=== PATIENT | female | born 1955 | race Caucasian/White ===

== ENCOUNTER → 2019-11-20 08:34 | Outpatient (CLI) | payer OTHER, SELFPAY ==
--- NOTE | ~2019-11-20 | MM_ITS ---
EXAMINATION: MM diagnostic esha LT w annalisa HISTORY: Left breast pain TECHNIQUE: ML, MLO and cc 3-D tomosynthesis images of the left breast were performed and synthetic 2- D images were generated. CAD analysis was submitted and interpreted. COMPARISON: None BREAST PARENCHYMAL COMPOSITION: The breasts are almost entirely fatty. FINDINGS: Occasional punctate benign microcalcifications. No suspicious mass or architectural distort ion, malignant calcification, skin thickening or retraction is detected. IMPRESSION: 1. No mammographic evidence of malignancy 2. Routine mammographic screening is recommended. BI-RADS Category 2: Benign finding(s). Reviewed, dictated and finalized at location A. SHOVELER
== END ==
PROVIDERS: PCP Internal Medicine; Visit Provider Nurse Practitioner
DX: N64.4 Mastodynia (principal)
CPT/HCPCS: 77061; 77065; G0279

== ENCOUNTER → 2021-02-20 13:23 | Outpatient (CLI) | payer OTHER, SELFPAY ==
--- NOTE | ~2021-02-20 | DEXA_ITS ---
Bone Density Report Name: Delisa Stein Age: 65 Sex: Female Ethnicity: White Date of : 1955 Indication: monitoring treatment; anorexia or bulimia; asthma or emphysema; hysterectomy; Referring Provider: TOBIAS VALLADARES Study: Bone densitometry was performed. Exam Date: February 20, 2021 Accession number: [id number] Bone Density: Region BMD T-score Z-score Classification AP Spine (L1-L4) 1.151 0.9 2.7 Normal Femoral Neck (Left) 0.773 -0.7 0.8 Normal Total Hip (Left) 0.952 0.1 1.3 Normal Femoral Neck (Right) 0.734 -1.0 0.4 Normal Total Hip (Right) 0.902 -0.3 0.9 Normal Total Hip Mean 0.927 -0.1 1.1 Normal World Health Organization criteria for BMD impression classify patients as: Normal (T-score at or above -1.0), Osteopenia (T-score between -1.0 and -2.5), or Osteoporosis (T-score at or below -2.5). 10-year Fracture Risk: FRAX not reported because: All T-scores for Spine Total, Hip Total, Femoral Neck at or above -1.0 Treated for osteoporosis Previous Exams: Region Exam Age BMD T-score BMD Change BMD Change Date g/cm2 vs Baseline vs Previous AP Spine(L1-L4) 02/20/2021 65 1.151 0.9 0.064* 0.015 11/26/2016 60 1.136 0.8 0.049* 0.049* 01/22/2013 57 1.087 0.4 Total Hip(Left) 02/20/2021 65 0.952 0.1 0.008 0.016 11/26/2016 60 0.936 0.0 -0.009 -0.009 01/22/2013 57 0.945 0.0 Total Hip(Right) 02/20/2021 65 0.902 -0.3 -0.047* -0.033* 11/26/2016 60 0.935 -0.1 -0.015 -0.015 01/22/2013 57 0.949 0.1 *Denotes significance at 95% confidence level, LSC for AP Spine = 0.022 g/cm2, LSC for Total Hip = 0.027 g/cm2 Clinical Information Provided by Patient: Is being treated for osteoporosis Has used the following medications: HRT (i.e. estrogen/hormone therapy), Vitamin D, Calcium Has the following medical conditions: Anorexia or Bulimia, Asthma or Emphysema, Hysterectomy Patient maximum height was 62 Menopause Age: 41 Does not regularly consume dairy products Drinks caffeinated beverages Onset of menses at age 14 Number of children 1 Impression: The patient has normal bone mass. The BMD for the Total Hip(Right) decreased, changing by -0.033 since the last DXA exam. Discussion: SIGNIFICANT BONE LOSS OBSERVED. Adherence to therapy (including calcium and vitamin D intake) should be assessed. If
== END ==
PROVIDERS: Visit Provider Obstetrics & Gynecology Gynecology
DX: Z78.0 Asymptomatic menopausal state (principal)
CPT/HCPCS: 77080

== ENCOUNTER → 2021-10-21 16:40 | Outpatient (CLI) | payer OTHER, SELFPAY ==
--- NOTE | ~2021-10-21 | XR_ITS ---
EXAMINATION: XR chest 2V DATE: 10/21/2021 17:00 INDICATION: Chest pain, unspecified TECHNIQUE: PA and lateral views of the chest are obtained. COMPARISON: 08/15/2013 FINDINGS: The lungs are free of acute opacities. There is no pleural effusion or pneumothorax. The ca rdiomediastinal silhouette is normal. There is moderate thoracic spondylosis. IMPRESSION: 1. No acute cardiopulmonary abnormality. Reviewed, dictated and finalized at location F. R BUILDER LOADER
== END ==
PROVIDERS: PCP Internal Medicine; Visit Provider Internal Medicine
DX: R07.9 Chest pain, unspecified (principal)
CPT/HCPCS: 71046

== ENCOUNTER 2022-02-20 16:26 | Emergency (ER) | payer MEDICARE, SELFPAY ==
--- NOTE | ~2022-02-20 | XR_ITS ---
EXAM: XR foot LT min 3V HISTORY: PLANTER PAIN, NO INJURY COMPARISON: 11/14/2018. FINDINGS: Normal mineralization. No fracture or dislocation. No lytic or blastic lesion. Mild degene rative change in the first MTP and midfoot. Achilles and plantar enthesopathy. No erosion or perioste al change. Soft tissues within normal limits. IMPRESSION: No acute osseous finding in the left foot. Reviewed, dictated and finalized at location K.
[2022-02-20 16:33] VITALS: BP 132/54; PULSE 70; RESP 18; TEMP 37; O2SAT 99
--- NOTE | 2022-02-20 17:46 | ED.LOWEXIN ---
HPI - Extremity Injury (Lower) General Chief Complaint: Extremity Injury, Lower Stated Complaint: foot injury Time Seen by Provider: 02/20/22 16:37 History of Present Illness HPI Narrative: 66-year-old female presents the emergency room for evaluation of left heel pain. Patient states she experienced abrupt onset of left heel pain when walking. Patient describes the pain is sharp, and is not relieved with ambulation. Patient denies any injury or trauma. Related Data Allergies Allergy/AdvReac Type Severity Reaction Status Date / Time Sulfa (Sulfonamide Allergy Mild Rash Unverified 03/14/17 07:52 Antibiotics) codeine Allergy Unknown Verified 08/28/15 09:15 erythromycin base Allergy Unknown Verified 08/28/15 09:15 morphine Allergy Unknown Verified 08/28/15 09:15 Review of Systems Review of Systems: CONSTITUTIONAL: Denies fever, chills, or sweats. EYES: Denies visual changes, redness, or discharge. ENT: Denies rhinorrhea, congestion, sore throat, or otalgia. CARDIOVASCULAR: Denies chest pain, palpitations, or edema. RESPIRATORY: Denies cough or dyspnea. GASTROINTESTINAL: Denies abdominal pain, nausea, vomiting, or diarrhea. GENITOURINARY: Denies dysuria or hematuria. SKIN: Denies rash or itching. MUSCULOSKELETAL: Reports left heel pain NEUROLOGIC: Denies headache, numbness, dizziness, or weakness. PSYCHIATRIC: Denies anxiety or depression. [facility] Social History Social History Smoking status: Never smoker Exam Narrative: GENERAL: Well-appearing, well-nourished, and in no acute distress. HEAD: Normocephalic, atraumatic. EYES: PERRLA and EOMI. CHEST: Clear to auscultation. No respiratory distress. No wheezes rales or rhonchi HEART: Regular rate and rhythm. No murmur heard. Normal peripheral pulses. EXTREMITIES: Normal range of motion. No edema. Left foot: Tenderness to the anterior surface of the heel, that is not exacerbated with dorsiflexion of the foot. No observable soft tissue swelling or bony abnormality SKIN: Warm, dry, no rash. NEURO: No focal deficits. Alert and oriented x3. PSYCH: Normal mood and affect. Course Vital Signs Vital signs: Vital Signs Temperature 37.0 C 02/20/22 16:33 Pulse Rate 70 02/20/22 16:33 Respiratory Rate 18 02/20/22 16:33 Blood Pressure 132/54 L 02/20/22 16:33 Pulse Oximetry 99 02/20/22 16:33 Temperature 37.0 C 02/20/22 16:33 Pulse Rate 70 02/20/22 16:33 Respiratory Rate 18 02/20/22 16:33 Blood Pressure 132/54 L 02/20/22 16:33 Pulse Oximetry 99 02/20/22 16:33 MDM - Extremity Injury (Lower) Imaging Data Radiologist's impression: Impressions Foot X-Ray 02/20/22 17:10 IMPRESSION: No acute osseous finding in the left foot. Discharge Plan Discharge Clinical Impression: Tendinitis of left foot Patient Disposition: Home, Self-Care Condition: Stable Instructions: Antibiotic Form Prescriptions: New naproxen 500 mg tablet 500 mg PO BID Qty: 14 RF: 0 Follow-up/Referrals: Michael Her JR, MD [Physician] - Carlos,Fabio Lin MD [Primary Care Provider] - Time of Disposition: 17:50
== END 2022-02-20 18:06 | disposition home or self-care (01) ==
PROVIDERS: Emergency Provider Nurse Practitioner Family; PCP Internal Medicine
DX: M77.8 Other enthesopathies, not elsewhere classified (principal)
CPT/HCPCS: 73630; 99283

== ENCOUNTER 2022-08-25 06:40 | Emergency (ER) | payer MEDICARE, SELFPAY ==
--- NOTE | ~2022-08-25 | XR_ITS ---
EXAMINATION: XR foot RT min 3V DATE: 08/25/2022 07:34 INDICATION: Right foot pain and swelling. TECHNIQUE: 4 views of right foot were obtained. COMPARISON: None. FINDINGS: Bone alignment is normal. There is a nondisplaced transverse fracture of base of fifth meta tarsal. There is mild osteoarthritis of talonavicular joint. There are enthesophytes at the posterior and plantar aspects of calcaneal tuberosity. IMPRESSION: 1. Nondisplaced transverse fracture of base of fifth metatarsal. Reviewed, dictated and finalized at location A. ER TILE FLOOR LAYER
--- NOTE | ~2022-08-25 | XR_ITS ---
EXAMINATION: XR ankle RT min 3V DATE: 08/25/2022 07:34 INDICATION: Right ankle pain and swelling. TECHNIQUE: 4 views of right ankle were obtained. COMPARISON: None. FINDINGS: Bone alignment is normal. There is a transverse fracture of base of fifth metatarsal. There is mild osteoarthritis of talonavicular joint. There are enthesophytes at the posterior and plantar resonance of calcaneal tuberosity. IMPRESSION: 1. Transverse fracture of base of fifth metatarsal. Reviewed, dictated and finalized at location A. CAL TERMINOLOGIST
[2022-08-25 06:44] VITALS: BP 147/55; PULSE 58; RESP 17; TEMP 36.3; O2SAT 97
--- NOTE | 2022-08-25 07:38 | ED.LOWEXIN ---
HPI - Extremity Injury (Lower) General Chief Complaint: Extremity Injury, Lower Stated Complaint: right foot pain Time Seen by Provider: 08/25/22 07:38 Source: patient History of Present Illness HPI Narrative: 66 years old white female, twisted right foot yesterday while slipping on a rock. No other injuries. Allergic to codeine. Related Data Home Medications Medication Instructions Recorded Confirmed atenolol 25 mg tablet 25 mg PO DAILY 08/25/22 estradiol 0.045 mg-levonorgestrel 1 patch transdermal WEEKLY 08/25/22 0.015 mg/24hr weekly transderm patch (Climara Pro) Allergies Allergy/AdvReac Type Severity Reaction Status Date / Time Sulfa (Sulfonamide Allergy Mild Rash Verified 08/25/22 07:13 Antibiotics) codeine Allergy Unknown Unknown Verified 08/25/22 07:13 erythromycin base Allergy Unknown Unknown Verified 08/25/22 07:13 morphine Allergy Unknown Unknown Verified 08/25/22 07:13 Review of Systems Review of Systems: All systems reviewed & are unremarkable except as noted in HPI and below PMFSH Social History Social History Smoking status: Never smoker Exam Narrative: General appearance: Well-developed, well-nourished Skin: Normal color Head: Normocephalic, nontraumatic Eyes: Clear conjunctiva Neck: Supple, nontender Chest and respiratory: Airway patent, no respiratory distress, no accessory muscle use Heart: Regular rate/rhythm Vascular: Normal peripheral pulses, normal capillary refill. Musculoskeletal: Diffuse tenderness right foot dorsally and laterally, swelling, bruises Neurologic: Alert and oriented ?3, WEATHERSEAL TECHNICIAN is normal as tested, no gross motor deficit Course Vital Signs Vital signs: Vital Signs Temperature 36.3 C L 08/25/22 06:44 Pulse Rate 58 L 08/25/22 06:44 Respiratory Rate 17 08/25/22 06:44 Blood Pressure 147/55 H 08/25/22 06:44 Pulse Oximetry 97 08/25/22 06:44 Oxygen Delivery Room Air 08/25/22 06:44 Temperature 36.3 C L 08/25/22 06:44 Pulse Rate 58 L 08/25/22 06:44 Respiratory Rate 17 08/25/22 06:44 Blood Pressure 147/55 H 08/25/22 06:44 Pulse Oximetry 97 08/25/22 06:44 Oxygen Delivery Room Air 08/25/22 06:44 MDM - Extremity Injury (Lower) Differential Diagnosis Differential diagnosis: Likely ankle sprain and strain and ankle fracture Imaging Data Radiologist's impression: Impressions Ankle X-Ray 08/25/22 07:35 IMPRESSION: 1. Transverse fracture of base of fifth metatarsal. Foot X-Ray 08/25/22 07:36 IMPRESSION: 1. Nondisplaced transverse fracture of base of fifth metatarsal. Critical Care Time Critical Care Time Critical Care Time: No Discharge Plan Discharge Clinical Impression: Foot fracture, right Patient Disposition: Home, Self-Care Condition: Stable Instructions: Antibiotic Form, Foot Fracture in Adults (ED) Additional Instructions: Return if symptoms are worsening , call your family physician for appointment, take Tylenol as as needed for aches and pain, continue home medications. Prescriptions: No Action atenolol 25 mg Tablet 25 mg PO DAILY Climara Pro 0.045-0.015 mg/24 hr Patch Weekly 1 patch TRANSDERMAL WEEKLY naproxen 500 mg tablet 500 mg PO BID Qty: 14 0RF Follow-up/Referrals: Michael Her JR, MD [Physician] - 08/25/22 Carlos,Fabio Lin MD [Primary Care Provider] - Stand Alone Forms: Work/School Release IP
--- NOTE | 2022-08-27 08:14 | PC.NURSE ---
late entry from 08/25/22 0709 & 0800 wound injury documentation should state right foot not left
== END 2022-08-25 08:00 | disposition home or self-care (01) ==
PROVIDERS: Emergency Provider Emergency Medicine; PCP Internal Medicine
DX: S92.354A Nondisplaced fracture of fifth metatarsal bone, right foot, initial encounter for closed fracture (principal); W18.41XA Slipping, tripping and stumbling without falling due to stepping on object, initial encounter
CPT/HCPCS: 73610; 73630; 99284

== ENCOUNTER → 2022-10-21 14:26 | Outpatient (CLI) | payer OTHER, SELFPAY ==
--- NOTE | ~2022-10-21 | US_ITS ---
EXAMINATION: US soft tissue chest INDICATION: Lump between the breasts TECHNIQUE: Limited high-resolution ultrasound is performed in the area of clinical concern. COMPARISON: None available FINDINGS: No suspicious cystic or solid sonographically detected mass is identified. There is normal chest wall tissue in the area of clinical concern. IMPRESSION: 1. No specific sonographic correlate is identified for the reported palpable abnormality of concern. Reviewed, dictated and finalized at location B. K REPAIR LABORER IMPRESSION: 1. No specific sonographic correlate is identified for the reported palpable ab normality of concern.
== END ==
PROVIDERS: PCP Internal Medicine; Visit Provider Obstetrics & Gynecology Gynecology
DX: N63.0 Unspecified lump in unspecified breast (principal)
CPT/HCPCS: 76604

== ENCOUNTER → 2022-11-12 13:31 | Outpatient (CLI) | payer MEDICARE, SELFPAY ==
--- NOTE | ~2022-11-12 | US_ITS ---
US axilla RT 11/12/2022 14:07 Indication: Palpable right axillary mass. Procedure: High-resolution Limited ultrasound of the right axilla Comparison: No prior studies for comparison. Findings: There are normal-appearing right axillary lymph nodes which retain their normal fatty hilum . Largest measures 1.9 x 1.1 x 1.6 cm, likely reactive. Impression: 1: Right axillary lymph nodes, most likely reactive, largest measuring up to 1.9 cm. Reviewed, dictated and finalized at location A. N OPERATOR Impression: 1: Right axillary lymph nodes, most likely reactive, largest measuring up to 1. 9 cm.
--- NOTE | ~2022-11-12 | US_ITS ---
EXAMINATION: US soft tissue head and neck DATE: 11/12/2022 14:07 INDICATION: Right supraclavicular lump. TECHNIQUE: Multiple grayscale and Doppler ultrasound images of the right supraclavicular region were obtained. COMPARISON: None FINDINGS: There is a normal lymph node in right supraclavicular region in the patient's area of indu rn. IMPRESSION: 1. No abnormal mass or lymphadenopathy in the patient's area of concern in right supraclavicular lindsay on. Reviewed, dictated and finalized at location A. CH/LANGUAGE THERAPIST IMPRESSION: 1. No abnormal mass or lymphadenopathy in the patient's area of concern in righ t supraclavicular region.
== END ==
PROVIDERS: PCP Internal Medicine; Visit Provider Surgery
DX: R22.2 Localized swelling, mass and lump, trunk (principal); R22.31 Localized swelling, mass and lump, right upper limb
CPT/HCPCS: 76536; 76882

== ENCOUNTER → 2023-04-18 08:02 | Outpatient (CLI) | payer MEDICARE, SELFPAY ==
--- NOTE | ~2023-04-18 | MR_ITS ---
MRI of the right foot CLINICAL HISTORY: Fracture base of fifth metatarsal TECHNIQUE: Axial proton-density and proton-density fat-sat images, sagittal T1-weighted and STIR imag es, and coronal T1-weighted and proton-density fat-sat images were performed. FINDINGS: There is an oblique, intra-articular fracture at the base the fifth metatarsal, without sig nificant displacement. There is minimal marrow edema. Remaining osseous structures are intact. No oth er fracture or dislocation seen. Joint spaces are well preserved. Flexor and extensor tendons are intact. There is minimal nonspecific subcutaneous soft tissue edema a t the dorsal aspect of the foot. No abscess or fluid collection evident. No intermetatarsal bursitis or Almonte's neuroma evident. IMPRESSION: Oblique, intra-articular, essentially nondisplaced fracture at the base of the fifth metatarsal. This could reflect delayed/nonunion, as patient had a similar fracture on prior radiographs from 08/25/20 22. Correlate for interval injury since that exam. Reviewed, dictated and finalized at [facility]. IMPRESSION: Oblique, intra-articular, essentially nondisplaced fracture at the base of the fifth metatarsal. This could reflect delayed/nonunion, as patient had a similar fracture on prior radiographs from 08/25/2022. Correlate for interval injury s sheela that exam.
== END ==
PROVIDERS: PCP Internal Medicine; Visit Provider Podiatrist Foot & Ankle Surgery
DX: S92.351K Displaced fracture of fifth metatarsal bone, right foot, subsequent encounter for fracture with nonunion (principal); X58.XXXD Exposure to other specified factors, subsequent encounter
CPT/HCPCS: 73718

== ENCOUNTER → 2023-06-30 12:22 | Outpatient (CLI) | payer MEDICARE, SELFPAY ==
--- NOTE | ~2023-06-30 | DEXA_ITS ---
Bone Density Report Name: ADAM PHAN Age: 67 Sex: Female Ethnicity: White Date of : 1955 Indication: postmenopausal; screening for osteoporosis; asthma or emphysema; hysterectomy; Referring Provider: TOBIAS VALLADARES Study: Bone densitometry was performed. Exam Date: June 30, 2023 Accession number: [id number] Bone Density: Region BMD T-score Z-score Classification AP Spine (L1-L4) 1.163 1.1 2.9 Normal Femoral Neck (Left) 0.802 -0.4 1.2 Normal Total Hip (Left) 0.937 0.0 1.3 Normal Femoral Neck (Right) 0.770 -0.7 0.9 Normal Total Hip (Right) 0.912 -0.2 1.1 Normal Total Hip Mean 0.925 -0.1 1.2 Normal World Health Organization criteria for BMD impression classify patients as: Normal (T-score at or above -1.0), Osteopenia (T-score between -1.0 and -2.5), or Osteoporosis (T-score at or below -2.5). 10-year Fracture Risk: FRAX not reported because: All T-scores for Spine Total, Hip Total, Femoral Neck at or above -1.0 Previous Exams: Region Exam Age BMD T-score BMD Change BMD Change Date g/cm2 vs Baseline vs Previous AP Spine(L1-L4) 06/30/2023 67 1.163 1.1 0.076* 0.012 02/20/2021 65 1.151 0.9 0.064* 0.015 11/26/2016 60 1.136 0.8 0.049* 0.049* 01/22/2013 57 1.087 0.4 Total Hip(Left) 06/30/2023 67 0.937 0.0 -0.007 -0.015 02/20/2021 65 0.952 0.1 0.008 0.016 11/26/2016 60 0.936 0.0 -0.009 -0.009 01/22/2013 57 0.945 0.0 Total Hip(Right) 06/30/2023 67 0.912 -0.2 -0.037* 0.010 02/20/2021 65 0.902 -0.3 -0.047* -0.033* 11/26/2016 60 0.935 -0.1 -0.015 -0.015 01/22/2013 57 0.949 0.1 *Denotes significance at 95% confidence level, LSC for AP Spine = 0.022 g/cm2, LSC for Total Hip = 0.027 g/cm2 Clinical Information Provided by Patient: Has used the following medications: HRT (i.e. estrogen/hormone therapy), Vitamin D, Calcium, MTV Has the following medical conditions: Asthma or Emphysema, Hysterectomy Patient maximum height was 62.0 Menopause Age: 41 Does not regularly consume dairy products Drinks caffeinated beverages Onset of menses at age 14 Number of children 1 Impression: The patient has normal bone mass. No significant bone loss was observed. Discussion: BONE DENSITY IS ABOVE THE MINIMUM DESIRABLE
== END ==
PROVIDERS: PCP Obstetrics & Gynecology Gynecology; Visit Provider Obstetrics & Gynecology Gynecology
DX: Z78.0 Asymptomatic menopausal state (principal)
CPT/HCPCS: 77080

== ENCOUNTER 2024-01-04 09:53 | Outpatient (CLI) | payer MEDICARE, SELFPAY ==
--- NOTE | ~2024-01-04 | MR_ITS ---
EXAMINATION: MR brain/brain stem wo/w con DATE: 01/04/2024 10:49 INDICATION: Headache. TECHNIQUE: Magnetic resonance imaging (MRI) of the brain and brainstem was performed without and with 15 mL MultiHance intravenous contrast. COMPARISON: None. FINDINGS: There is no intracranial hemorrhage, acute infarction, or abnormal intracranial mass lesion . There are scattered areas of nonspecific increased T2-weighted signal intensity in the cerebral whi te matter and joni, which is within normal limits for the patient's age. The ventricles are normal in size. There is mild mucosal thickening in the ethmoid sinuses. The orbits are normal. There is a tra ce left mastoid effusion. IMPRESSION: 1. Normal aging brain. Reviewed, dictated and finalized at location A. IMPRESSION: 1. Normal aging brain.
== END 2024-01-04 09:54 ==
LOC: MICIMG 09:55
PROVIDERS: PCP Nurse Practitioner Primary Care; Visit Provider Nurse Practitioner Primary Care
DX: R51.9 Headache, unspecified (principal)
CPT/HCPCS: 70553; A9577

== ENCOUNTER 2025-10-01 10:00 | Outpatient (CLI) | payer MEDICARE, SELFPAY ==
--- NOTE | ~2025-10-01 | DEXA_ITS ---
Bone Density Report Name: ADAM PHAN Age: 69 Sex: Female Ethnicity: White Date of : 1955 Indication: postmenopausal; screening for osteoporosis; height loss; hysterectomy; Referring Provider: TOBIAS VALLADARES Study: Bone densitometry was performed. Exam Date: October 01, 2025 Accession number: [id number] Bone Density: Region BMD T-score Z-score Classification AP Spine(L1-L4) 1.146 0.9 2.9 Normal Femoral Neck (Left) 0.745 -0.9 0.8 Normal Total Hip (Left) 0.885 -0.5 1.0 Normal Femoral Neck (Right) 0.723 -1.1 0.6 Osteopenia Total Hip (Right) 0.869 -0.6 0.8 Normal Total Hip Mean 0.877 -0.6 0.9 Normal World Health Organization criteria for BMD impression classify patients as: Normal (T-score at or above -1.0), Osteopenia (T-score between -1.0 and -2.5), or Osteoporosis (T-score at or below -2.5). 10-year Fracture Risk(1): Major Osteoporotic Fracture 8.9% Hip Fracture 0.9% Reported Risk Factors: [place] (), Neck BMD=0.723, BMI=26.5 (1) FRAX(R) Version 3.08. Fracture probability calculated for an untreated patient. Fracture probability may be lower if the patient has received treatment. Previous Exams: -- Region Exam Age BMD T-score BMD Change BMD Change Date g/cm2 vs Baseline vs Previous -- AP Spine (L1-L4) 10/01/2025 69 1.146 0.9 5.4%* -1.5% 06/30/2023 67 1.163 1.1 7.0%* 1.1% 02/20/2021 65 1.151 0.9 5.9%* 1.3% 11/26/2016 60 1.136 0.8 4.5%* 4.5%* 01/22/2013 57 1.087 0.4 Total Hip(Left) 10/01/2025 69 0.885 -0.5 -6.3%* -5.6%* 06/30/2023 67 0.937 0.0 -0.8% -1.6% 02/20/2021 65 0.952 0.1 0.8% 1.7% 11/26/2016 60 0.936 0.0 -0.9% -0.9% 01/22/2013 57 0.945 0.0 Total Hip(Right) 10/01/2025 69 0.869 -0.6 -8.4%* -4.7%* 06/30/2023 67 0.912 -0.2 -3.9%* 1.1% 02/20/2021 65 0.902 -0.3 -5.0%* -3.5%* 11/26/2016 60 0.935 -0.1 -1.5% -1.5% 01/22/2013 57 0.949 0.1 -- *Denotes significance at 95% confidence level, LSC for AP Spine = 0.022 g/cm2, LSC for Total Hip = 0.027 g/cm2 Clinical Information Provided by Patient: Has used the following medications: HRT (i.e. estrogen/hormone therapy), Vitamin D, Calcium Has the following medical conditions: Hysterectomy Patient maximum height was 62 Menopause Age: 41 Does not regularly consume dairy products Drinks caffeinated beverages Onset of menses at age 16 Number of children 1 Impression: The patient has low bone mass, based on the Right Femoral Neck T-score. The patient has an estimated ten-year risk of hip fracture of 0.9% and an estimated ten-year risk of major fracture of 8.9%, based on the WHO FRAX algorithm. The BMD for the Total Hip(Left) decreased, changing by -5.6% since the last DXA exam. The BMD for the Total Hip(Right) decreased, changing by -4.7% since the last DXA exam. Discussion: BONE DENSITY IS LOW AT ONE OR MORE SKELETAL SITES. This patient's lowest T-score is low at one or more skeletal sites. It meets the World Health Organization's (WHO) criteria for ?low bone mass? (T-score between -1.0 and -2.5). The patient's 10-year risk of fracture as calculated by FRAX is less than the threshold where pharmacological therapy is recommended by the National Osteoporosis Foundation (NOF). However, all treatment decisions require clinical judgment and consideration of individual patient factors, including patient preferences, comorbidities, previous drug use, risk factors not captured in the FRAX model (e.g., frailty, falls, vitamin D deficiency, increased bone turnover, interval significant decline in bone density) and possible under or overestimation of fracture risk by FRAX. The patient should follow a healthful lifestyle (good nutrition with adequate calcium and vitamin D, and appropriate weight-bearing exercise). Follow-Up: Consider repeating this study in 2 years to reassess this patient's status, or sooner if there is some new clinical indication. Reported by: YANDY on 10/01/2025 10:23:00 AM. Reviewed, dictated and finalized at location A.
== END 2025-10-01 10:01 | disposition home or self-care (01) ==
PROVIDERS: PCP Nurse Practitioner Primary Care; Visit Provider Obstetrics & Gynecology Gynecology
DX: M85.852 Other specified disorders of bone density and structure, left thigh (principal); Z78.0 Asymptomatic menopausal state
CPT/HCPCS: 77080